=== PATIENT | male | born 1950 | race African-American/Black ===

== ENCOUNTER 2017-07-23 19:24 | Emergency (ER) | payer MEDICARE, OTHER ==
[~2017-07-23] VITALS: Ht 177.8 cm; Wt 86.3 kg
[~2017-07-23 19:24] MED LIST: CHOL400T32 PO; DILT180C66 PO; DOCU-28 PO; HYDR-565 PO; LOSA50TA3 PO; ONDA4TAB6 PO; POTA10TA19 PO
[2017-07-23] MEDS ORDERED: BUPIVAcaine/PF 2.5 mg/ml (0.25%) 30ml vial IJ ONE (22:15)
[2017-07-23 23:32] VITALS: BP 150/82
== END 2017-07-23 23:35 | disposition home or self-care (01) ==
LOC: ER 19:25
DX: S60.451A Superficial foreign body of left index finger, initial encounter (principal); Z91.013 Allergy to seafood; Z79.899 Other long term (current) drug therapy; W45.8XXA Other foreign body or object entering through skin, initial encounter; Y93.89 Activity, other specified; Y92.89 Other specified places as the place of occurrence of the external cause; Y99.8 Other external cause status
CPT/HCPCS: 10120; 99284; J3490